=== PATIENT | male | born 1995 | race American Indian/Alaskan Native ===

== ENCOUNTER 2018-11-03 17:45 | Emergency (ER) | payer BC ==
--- NOTE | 2018-11-03 17:57 | Emergency Department Report ---
Chief Complaint: Back Pain/Injury Stated Complaint: CHEST PAIN/RT SIDE/BACK PAIN - HPI History of Present Illness: 23 yo w right sided cp occurred while asleep no sob rad to back 12 lead noted vss nad abc intact pmh none psh none rx none denies etoh, cig or drugs MSE completed MSE screening note: Focused history and physical exam performed. Due to findings the following was ordered: ED Disposition for MSE Condition: Stable
[2018-11-03 18:03] VITALS: BP 138/76
--- NOTE | 2018-11-03 18:46 | XRay Report ---
FINAL REPORT EXAM: XR CHEST ROUTINE 2V HISTORY: chest pain TECHNIQUE: upright single view chest PRIORS: None. FINDINGS: Cardiac and mediastinal contours are unremarkable. No focal pulmonary infiltrate is identified. No pleural fluid collection seen. Pulmonary vasculature is unremarkable. IMPRESSION: Negative single-view chest
[2018-11-03] MEDS ORDERED: ULTRAM PO ONE (19:47)
--- NOTE | 2018-11-03 20:03 | Emergency Department Report ---
ED General Adult HPI - General Chief complaint: Back Pain/Injury Stated complaint: CHEST PAIN/RT SIDE/BACK PAIN Time Seen by Provider: 11/03/18 18:00 Source: patient Mode of arrival: Ambulatory Limitations: No Limitations - History of Present Illness Initial comments: Patient is a 23-year-old -U[place]and[place] male with a history of bronchitis works as a data warehouse developer presents for right sided chest wall pain follow 10 pain is exacerbated by deep breathing and movement and overhead reaching pain started yesterday and radiates to right upper back there is no shortness of breath there is no dizziness or lightheadedness no nausea vomiting patient denies shortness of breath has been no wheezing or cough no URI symptoms there's no activity intolerance patient is tolerating by mouth intake this pain is reproducible to touch palpation and overhead reaching Onset/Timin -: days(s) Location: chest Radiation: back Severity scale (0 -10): 6 Quality: sharp Consistency: intermittent Improves with: rest Worsens with: movement, other (deep inspiration) Associated Symptoms: chest pain. denies: cough, diaphoresis, nausea/vomiting, shortness of breath, syncope, weakness Treatments Prior to Arrival: none - Related Data Previous Rx's Medication Instructions Recorded Last Taken Type Naproxen 500 mg PO BID PRN #30 tablet 11/03/18 Unknown Rx Allergies Allergy/AdvReac Type Severity Reaction Status Date / Time ketorolac [From Toradol] Allergy Rash Verified 11/03/18 17:49 Sulfa (Sulfonamide Allergy Rash Verified 11/03/18 17:49 Antibiotics) ED Review of Systems ROS: Stated complaint: CHEST PAIN/RT SIDE/BACK PAIN Other details as noted in HPI Constitutional: denies: chills, fever Eyes: denies: eye pain, eye discharge, vision change ENT: denies: ear pain, throat pain Respiratory: denies: cough, shortness of breath, wheezing Cardiovascular: chest pain Endocrine: no symptoms reported Gastrointestinal: denies: abdominal pain, nausea, vomiting, diarrhea Genitourinary: denies: urgency, dysuria Musculoskeletal: denies: joint swelling, arthralgia Skin: denies: rash, lesions Neurological: denies: headache, weakness, paresthesias Psychiatric: denies: anxiety, depression Hematological/Lymphatic: denies: easy bleeding, easy bruising ED Past Medical Hx - Past Medical History Previous Medical History?: No - Surgical History Past Surgical History?: Yes Additional Surgical History: Ortho surgery - Social History Smoking Status: Current Every Day Smoker Substance Use Type: None - Medications Home Medications: Home Medications Medication Instructions Recorded Confirmed Last Taken Type Naproxen 500 mg PO BID PRN #30 tablet 11/03/18 Unknown Rx ED Physical Exam - General Limitations: No Limitations General appearance: alert, in no apparent distress - Head Head exam: Present: atraumatic, normocephalic, normal inspection - Eye Eye exam: Present: normal appearance, PERRL, EOMI Pupils: Present: normal accommodation - ENT ENT exam: Present: normal orophraynx, mucous membranes moist, TM's normal bilaterally, normal external ear exam - Neck Neck exam: Present: normal inspection, full ROM. Absent: tenderness, lymphadenopathy, thyromegaly - Respiratory Respiratory exam: Present: chest wall tenderness (right lateral chest wall tenderness ). Absent: wheezes, stridor - Cardiovascular Cardiovascular Exam: Present: regular rate, normal rhythm, normal heart sounds. Absent: systolic murmur, diastolic murmur, rubs, gallop - GI/Abdominal GI/Abdominal exam: Present: soft, normal bowel sounds. Absent: tenderness, bruit, hernia - Rectal Rectal exam: Present: deferred - Extremities Exam Extremities exam: Present: normal inspection, full ROM, normal capillary refill. Absent: tenderness, pedal edema, joint swelling, calf tenderness - Back Exam Back exam: Present: normal inspection, full ROM. Absent: tenderness, CVA tenderness (R), CVA tenderness (L), muscle spasm, rash noted - Neurological Exam Neurological exam: Present: alert, oriented X3, CN II-XII intact, normal gait, reflexes normal - Psychiatric Psychiatric exam: Present: normal affect, normal mood - Skin Skin exam: Present: warm, dry, intact, normal color. Absent: rash ED Course Vital Signs 11/03/18 18:02 Temperature 98.2 F Pulse Rate 73 Respiratory 18 Rate Blood Pressure 138/76 O2 Sat by Pulse 100 Oximetry ED Medical Decision Making - EKG Data EKG shows normal: sinus rhythm Rate: normal - EKG Data When compared to previous EKG there are: previous EKG unavailable Interpretation: normal EKG (Ekg interp by ED attending : NSR no ectopy no ST Elevation ) - Radiology Data Radiology results: report reviewed, image reviewed FINAL REPORT EXAM: XR CHEST ROUTINE 2V HISTORY: chest pain TECHNIQUE: upright single view chest PRIORS: None. FINDINGS: Cardiac and mediastinal contours are unremarkable. No focal pulmonary infiltrate is identified. No pleural fluid collection seen. Pulmonary vasculature is unremarkable. IMPRESSION: Negative single-view chest Transcribed By: JUNI Dictated By: BAM RONDON MD Electronically Authenticated By: BAM RONDON MD Signed Date/Time: 11/03/181845 DD/ 44 TD/TT: 11/03/181844 - Medical Decision Making Ekg is normal interp by ed attending, cxr: normal cxr no infiltrates no opa cites, exam: right anterior lateral chest wall tenderness that is reproducible to palpation, there is no deformity no crepitus no ecchymosis, there has been no fall injury or trauma , pt denies sob there is no wheezing lungs sounds are clear throughout all lung lawson pt is in nad, plan: NSAIDS prn chest wall pain follow up with pcp in 2-3 days, return to ed if symptoms worsen. pt will dc'd to home in stable condition at this time, there is no concern for GA or PE, Heart score not completed as there was no trop result however likely 0 given hx and exam, Perc PE is 0, pt is stable at this time. pain is 1/10 after NSAIDS given in ED. Critical care attestation.: If time is entered above; I have spent that time in minutes in the direct care of this critically ill patient, excluding procedure time. ED Disposition Clinical Impression: Chest wall pain Disposition: DC-01 TO HOME OR SELFCARE Is pt being admited?: No Does the pt Need Aspirin: No Condition: Stable Instructions: Chest Pain (ED), Costochondritis (ED) Prescriptions: Naproxen 500 mg PO BID PRN #30 tablet PRN Reason: pain Referrals: [facility] [Outside] - 3-5 Days Forms: Work/School Release Form(ED) Time of Disposition: 20:16
== END 2018-11-03 20:24 | disposition home or self-care (01) ==
LOC: ED 17:45
DX: R07.89 Other chest pain (principal); F17.200 Nicotine dependence, unspecified, uncomplicated; Z88.2 Allergy status to sulfonamides; Z88.5 Allergy status to narcotic agent
CPT/HCPCS: 71046; 93005; 93010; 99283

== ENCOUNTER 2021-04-07 08:41 | Emergency (ER) | payer BC ==
[2021-04-07 09:23] VITALS: BP 119/64
[2021-04-07 10:07] LABS: Hematocrit 41.1 % (35.5-45.6); Hemoglobin 13.4 gm/dl (11.8-15.2); Mean Corpuscular HGB Conc 33 % (32-34); Mean Corpuscular Volume 74 fl (84-94); Platelet Count 199 K/mm3 (140-440); Red Blood Count 5.58 M/mm3 (3.65-5.03); Red Cell Distribution Width 15.3 % (13.2-15.2)
[2021-04-07 10:26] LABS: Alanine Aminotransferase 20 units/L (7-56); Albumin 4.7 g/dL (3.9-5); BUN/Creatinine Ratio 10; Blood Urea Nitrogen 10 mg/dL (9-20); Calcium 9.6 mg/dL (8.4-10.2); Hemolysis Index 6
--- NOTE | 2021-04-07 10:28 | Event Note ---
ED Screening Note ED Screening Note: +marijuana +tobacco +ETOH n/v began this morning 10 episodes no diarrhea lower abd pain and lower back pain no hematochezia, melena or hematemesis pmhx none allergy sulfa and toradol This initial assessment/diagnostic orders/clinical plan/treatment(s) is/are subject to change based on patients health status, clinical progression and re- assessment by fellow clinical providers in the ED. Further treatment and workup at subsequent clinical providers discretion. Patient/guardian urged not to elope from the ED as their condition may be serious if not clinically assessed and managed. Initial orders include: labs, urine
[2021-04-07] MEDS ORDERED: ONDANSETRON 4 MG/2 ML INJ IV ONE (10:48)
[2021-04-07] MEDS ORDERED: SODIUM CHLORIDE 0.9% 1000 ML 1,000 ML IV ONE (10:48)
[2021-04-07 10:52] LABS: Bilirubin,Urine NEG (Negative); Blood,Urine NEG (Negative); Color,Urine Yellow (Yellow); Mucus,Urine 2+ /HPF; WBC,Urine < 1.0 /HPF (0.0-6.0)
--- NOTE | 2021-04-07 12:00 | Cat Scan Report ---
CT ABDOMEN AND PELVIS WITH CONTRAST INDICATION / CLINICAL INFORMATION: lower abd pain, lower back pain, n/v OMNI 300 100 ml. TECHNIQUE: Axial CT images were obtained through the abdomen and pelvis after IV contrast. All CT sc ans at this location are performed using CT dose reduction for ALARA by means of automated exposure c ontrol. COMPARISON: None available. FINDINGS: LOWER CHEST: No significant abnormality. LIVER: No significant abnormality. GALLBLADDER: No significant abnormality. BILE DUCTS: No significant abnormality. PANCREAS: No significant abnormality. SPLEEN: No significant abnormality. ADRENALS: No significant abnormality. RIGHT KIDNEY / URETER: No significant abnormality. LEFT KIDNEY / URETER: No significant abnormality. STOMACH / SMALL BOWEL: No significant abnormality. COLON: No significant abnormality. APPENDIX: Nonvisualized. However, no pericecal inflammation is identified. PERITONEUM: No free fluid. No free air. No fluid collection. LYMPH NODES: No significant adenopathy. AORTA / ARTERIES: No significant abnormality. IVC / VEINS: No significant abnormality. URINARY BLADDER: No significant abnormality. REPRODUCTIVE ORGANS: No significant abnormality. ADDITIONAL FINDINGS: None. SKELETAL SYSTEM: No significant abnormality. IMPRESSION: 1. No significant abnormality. Signer Name: Waldo Tipton MD Signed: 04/07/2021 11:56 AM Workstation Name: [id number]
--- NOTE | 2021-04-07 12:16 | Emergency Department Report ---
ED N/V/D HPI - General Chief complaint: Abdominal Pain Stated complaint: ABD PAINS Time Seen by Provider: 04/07/21 10:25 Source: patient Mode of arrival: Ambulatory Limitations: No Limitations - History of Present Illness Initial comments: Patient is a 25-year-old male presents emergency room complaints of nausea vomiting that began this morning. He reports that he had approximately 10 episodes of vomiting. Patient states that he has lower abdominal and lower back discomfort. He denies any diarrhea, hematochezia, melena, hematemesis, pus in the stool, fever, chills. He denies any recent travel, sick contacts, eating spoiled or different foods, water from a different source, recent camping, recent antibiotics. No past medical history. Allergy to sulfa and Toradol. He endorses marijuana, tobacco, alcohol use. - Related Data Previous Rx's Medication Instructions Recorded Last Taken Type Naproxen 500 mg PO BID PRN #30 tablet 11/03/18 Unknown Rx Ondansetron [Zofran Odt] 4 mg PO Q8HR PRN #10 tab.rapdis 04/07/21 Unknown Rx Allergies Allergy/AdvReac Type Severity Reaction Status Date / Time ketorolac [From Toradol] Allergy Rash Verified 11/03/18 17:49 Sulfa (Sulfonamide Allergy Rash Verified 11/03/18 17:49 Antibiotics) ED Review of Systems ROS: Stated complaint: ABD PAINS Other details as noted in HPI Comment: All other systems reviewed and negative ED Past Medical Hx - Past Medical History Previous Medical History?: No - Surgical History Additional Surgical History: Ortho surgery, 2 wrist surgeries, knee surgery - Social History Smoking Status: Current Every Day Smoker Substance Use Type: None - Medications Home Medications: Home Medications Medication Instructions Recorded Confirmed Last Taken Type Naproxen 500 mg PO BID PRN #30 tablet 11/03/18 Unknown Rx Ondansetron [Zofran Odt] 4 mg PO Q8HR PRN #10 tab.rapdis 04/07/21 Unknown Rx ED Physical Exam - General Limitations: No Limitations General appearance: alert, in no apparent distress - Head Head exam: Present: atraumatic, normocephalic - Eye Eye exam: Present: normal appearance - ENT ENT exam: Present: mucous membranes moist - Respiratory Respiratory exam: Present: normal lung sounds bilaterally. Absent: respiratory distress, wheezes, rales, rhonchi, stridor, chest wall tenderness, accessory muscle use, decreased breath sounds, prolonged expiratory - Cardiovascular Cardiovascular Exam: Present: regular rate, normal rhythm, normal heart sounds. Absent: systolic murmur, diastolic murmur, rubs, gallop - GI/Abdominal GI/Abdominal exam: Present: soft, tenderness (mild generalized lower), normal bowel sounds. Absent: distended, guarding, rebound, rigid - Back Exam Back exam: Absent: CVA tenderness (R), CVA tenderness (L) - Neurological Exam Neurological exam: Present: alert, oriented X3 - Psychiatric Psychiatric exam: Present: normal affect, normal mood - Skin Skin exam: Present: warm, dry, intact ED Course Vital Signs 04/07/21 04/07/21 09:20 13:03 Temperature 98.8 F Pulse Rate 72 78 Respiratory 18 16 Rate Blood Pressure 119/64 O2 Sat by Pulse 100 98 Oximetry ED Medical Decision Making - Lab Data Result diagrams: 04/07/21 09:29 04/07/21 09:29 Lab Results 04/07/21 04/07/21 04/07/21 Range/Units 09:29 09:29 09:29 WBC 6.1 (4.5-11.0) K/mm3 RBC 5.58 H (3.65-5.03) M/mm3 Hgb 13.4 (11.8-15.2) gm/dl Hct 41.1 (35.5-45.6) % MCV 74 L (84-94) fl MCH 24 L (28-32) pg MCHC 33 (32-34) % RDW 15.3 H (13.2-15.2) % Plt Count 199 (140-440) K/mm3 [place] % (Auto) Machine Brush Maker Add Manual Diff Complete Total Counted 100 Lymphocytes % (Manual) 1.0 L (13.4-35.0) % Monocytes % (Manual) 6.0 (0.0-7.3) % Nucleated RBC % Not Reportable Seg Neutrophils # Man 5.7 (1.8-7.7) K/mm3 Band Neutrophils # 0.0 K/mm3 Lymphocytes # (Manual) 0.1 L (1.2-5.4) K/mm3 Abs React Lymphs (Man) 0.0 K/mm3 Monocytes # (Manual) 0.4 (0.0-0.8) K/mm3 Eosinophils # (Manual) 0.0 (0.0-0.4) K/mm3 Basophils # (Manual) 0.0 (0.0-0.1) K/mm3 Metamyelocytes # 0.0 K/mm3 Myelocytes # 0.0 K/mm3 Promyelocytes # 0.0 K/mm3 Blast Cells # 0.0 K/mm3 WBC Morphology Not Reportable Hypersegmented Neuts Not Reportable Hyposegmented Neuts Not Reportable Hypogranular Neuts Not Reportable Smudge Cells Not Reportable Toxic Granulation Not Reportable Toxic Vacuolation Not Reportable Dohle Bodies Not Reportable Pelger-Huet Anomaly Not Reportable Rachelle Rods Not Reportable Platelet Estimate Consistent w auto Clumped Platelets Not Reportable Plt Clumps, EDTA Not Reportable Large Platelets Not Reportable Giant Platelets Not Reportable Platelet Satelliting Not Reportable Plt Morphology Comment Not Reportable RBC Morphology Not Reportable Dimorphic RBCs Not Reportable Polychromasia Not Reportable Hypochromasia 1+ Poikilocytosis Not Reportable Anisocytosis Not Reportable Microcytosis Not Reportable Macrocytosis Not Reportable Spherocytes Not Reportable Pappenheimer Bodies Not Reportable Sickle Cells Not Reportable Target Cells Not Reportable Tear Drop Cells Not Reportable Ovalocytes Not Reportable Helmet Cells Not Reportable Harley-[place]-Cascade Bodies Not Reportable [place] Rings Not Reportable Greene Cells Not Reportable Bite Cells Not Reportable Crenated Cell Not Reportable Elliptocytes Not Reportable Acanthocytes (Spur) Not Reportable Rouleaux Not Reportable Hemoglobin C Crystals Not Reportable Schistocytes Not Reportable Malaria parasites Not Reportable Javon Bodies Not Reportable Hem Pathologist Commnt No Sodium 138 (137-145) mmol/L Potassium 4.4 (3.6-5.0) mmol/L Chloride 100.8 (98-107) mmol/L Carbon Dioxide 27 (22-30) mmol/L Anion Gap 15 mmol/L BUN 10 (9-20) mg/dL Creatinine 1.0 (0.8-1.3) mg/dL Estimated GFR > 60 ml/min BUN/Creatinine Ratio 10 % Glucose 88 (75-100) mg/dL Calcium 9.6 (8.4-10.2) mg/dL Total Bilirubin 0.60 (0.1-1.2) mg/dL AST 18 (5-40) units/L ALT 20 (7-56) units/L Alkaline Phosphatase 77 (35-129) units/L Total Protein 7.7 (6.3-8.2) g/dL Albumin 4.7 (3.9-5) g/dL Albumin/Globulin Ratio 1.6 % Lipase 32 (13-60) units/L Urine Color (Yellow) Urine Turbidity (Clear) Urine pH (5.0-7.0) Ur Specific [place] (1.003-1.030) Urine Protein (Negative) mg/dL Urine Glucose (UA) (Negative) mg/dL Urine Ketones (Negative) mg/dL Urine Blood (Negative) Urine Nitrite (Negative) Urine Bilirubin (Negative) Urine Urobilinogen (<2.0) mg/dL Ur Leukocyte Esterase (Negative) Urine WBC (Auto) (0.0-6.0) /HPF Urine RBC (Auto) (0.0-6.0) /HPF Urine Mucus /HPF // Range/Units 10:13 WBC (4.5-11.0) K/mm3 RBC (3.65-5.03) M/mm3 Hgb (11.8-15.2) gm/dl Hct (35.5-45.6) % MCV (84-94) fl MCH (28-32) pg MCHC (32-34) % RDW (13.2-15.2) % Plt Count (140-440) K/mm3 Alger % (Auto) Add Manual Diff Total Counted Lymphocytes % (Manual) (13.4-35.0) % Monocytes % (Manual) (0.0-7.3) % Nucleated RBC % Seg Neutrophils # Man (1.8-7.7) K/mm3 Band Neutrophils # K/mm3 Lymphocytes # (Manual) (1.2-5.4) K/mm3 Abs React Lymphs (Man) K/mm3 Monocytes # (Manual) (0.0-0.8) K/mm3 Eosinophils # (Manual) (0.0-0.4) K/mm3 Basophils # (Manual) (0.0-0.1) K/mm3 Metamyelocytes # K/mm3 Myelocytes # K/mm3 Promyelocytes # K/mm3 Blast Cells # K/mm3 WBC Morphology Hypersegmented Neuts Hyposegmented Neuts Hypogranular Neuts Smudge Cells Toxic Granulation Toxic Vacuolation Dohle Bodies Pelger-Huet Anomaly Rachelle Rods Platelet Estimate Clumped Platelets Plt Clumps, EDTA Large Platelets Giant Platelets Platelet Satelliting Plt Morphology Comment RBC Morphology Dimorphic RBCs Polychromasia Hypochromasia Poikilocytosis Anisocytosis Microcytosis Macrocytosis Spherocytes Pappenheimer Bodies Sickle Cells Target Cells Tear Drop Cells Ovalocytes Helmet Cells Harley-Highfield-Cascade Bodies [place] Rings Greene Cells Bite Cells Crenated Cell Elliptocytes Acanthocytes (Spur) Rouleaux Hemoglobin C Crystals Schistocytes Malaria parasites Javon Bodies Hem Pathologist Commnt Sodium (137-145) mmol/L Potassium (3.6-5.0) mmol/L Chloride (98-107) mmol/L Carbon Dioxide (22-30) mmol/L Anion Gap mmol/L BUN (9-20) mg/dL Creatinine (0.8-1.3) mg/dL Estimated GFR ml/min BUN/Creatinine Ratio % Glucose (75-100) mg/dL Calcium (8.4-10.2) mg/dL Total Bilirubin (0.1-1.2) mg/dL AST (5-40) units/L ALT (7-56) units/L Alkaline Phosphatase (35-129) units/L Total Protein (6.3-8.2) g/dL Albumin (3.9-5) g/dL Albumin/Globulin Ratio % Lipase (13-60) units/L Urine Color Yellow (Yellow) Urine Turbidity Clear (Clear) Urine pH 8.0 H (5.0-7.0) Ur Specific [place] 1.027 (1.003-1.030) Urine Protein 100 mg/dl (Negative) mg/dL Urine Glucose (UA) Neg (Negative) mg/dL Urine Ketones Neg (Negative) mg/dL Urine Blood Neg (Negative) Urine Nitrite Neg (Negative) Urine Bilirubin Neg (Negative) Urine Urobilinogen 2.0 (<2.0) mg/dL Ur Leukocyte Esterase Neg (Negative) Urine WBC (Auto) < 1.0 (0.0-6.0) /HPF Urine RBC (Auto) 3.0 (0.0-6.0) /HPF Urine Mucus 2+ /HPF - Radiology Data Radiology results: report reviewed Ordering Physician: MEGAN BRADY Date of Service: 04/07/21 Procedure(s): CT abdomen pelvis w con Accession Number(s): [id number] cc: MEGAN BRADY CT ABDOMEN AND PELVIS WITH CONTRAST INDICATION / CLINICAL INFORMATION: lower abd pain, lower back pain, n/v OMNI 300 100 ml. TECHNIQUE: Axial CT images were obtained through the abdomen and pelvis after IV contrast. All CT scans at this location are performed using CT dose reduction for ALARA by means of automated exposure control. COMPARISON: None available. FINDINGS: LOWER CHEST: No significant abnormality. LIVER: No significant abnormality. GALLBLADDER: No significant abnormality. BILE DUCTS: No significant abnormality. PANCREAS: No significant abnormality. SPLEEN: No significant abnormality. ADRENALS: No significant abnormality. RIGHT KIDNEY / URETER: No significant abnormality. LEFT KIDNEY / URETER: No significant abnormality. STOMACH / SMALL BOWEL: No significant abnormality. COLON: No significant abnormality. APPENDIX: Nonvisualized. However, no pericecal inflammation is identified. PERITONEUM: No free fluid. No free air. No fluid collection. LYMPH NODES: No significant adenopathy. AORTA / ARTERIES: No significant abnormality. IVC / VEINS: No significant abnormality. URINARY BLADDER: No significant abnormality. REPRODUCTIVE ORGANS: No significant abnormality. ADDITIONAL FINDINGS: None. SKELETAL SYSTEM: No significant abnormality. IMPRESSION: 1. No significant abnormality. Signer Name: Waldo Tipton MD Signed: 04/07/2021 11:56 AM Workstation Name: [id number] Transcribed By: SB Dictated By: WALDO TIPTON MD Electronically Authenticated By: WALDO TIPTON MD Signed Date/Time: 04/07/21 1156 DD/ 1152 TD/TT: - Medical Decision Making Patient is a 25-year-old male presents emergency room complaints of nausea vomiting that began this morning. He reports that he had approximately 10 episodes of vomiting. Patient states that he has lower abdominal and lower back discomfort. He denies any diarrhea, hematochezia, melena, hematemesis, pus in the stool, fever, chills. He denies any recent travel, sick contacts, eating spoiled or different foods, water from a different source, recent camping, recent antibiotics. No past medical history. Allergy to sulfa and Toradol. He endorses marijuana, tobacco, alcohol use. Vitals are normal. On exam patient has mild generalized lower abdominal tenderness palpation, no guarding, no kassidy ound, no rigidity, no masses, no peritoneal signs, no CVA tenderness. Labs are stable. UA without evidence of UTI. CT abdomen pelvis with IV contrast 1. No significant abnormality. Patient given 1 L normal saline and Zofran while in the emergency department with improvement of his symptoms. Patient was feeling better and ready to go home. He had no further episodes of vomiting while in the emergency department was able to tolerate p.o. intake. Patient given prescription for Zofran. Discussed the importance of primary care follow-up for repeat abdominal examination in 2 days. Discussed return precautions with patient. Advised patient Please take medication as prescribed as needed. Increase your water intake. Eat a bland liquid diet and still advance her diet as tolerated. Follow-up with your primary care doctor for reexamination the next 2 days. Return to emergency room immediately for any new or worsening symptoms including but not limited to worsening abdominal pain, fever, continued vomiting, unable to tolerate by mouth intake, etc. Critical care attestation.: If time is entered above; I have spent that time in minutes in the direct care of this critically ill patient, excluding procedure time. ED Disposition Clinical Impression: Abdominal pain Qualifiers: Abdominal location: lower abdomen, unspecified Qualified Code(s): R10.30 - Lower abdominal pain, unspecified Low back pain Qualifiers: Chronicity: acute Back pain laterality: unspecified Sciatica presence: without sciatica Qualified Code(s): M54.5 - Low back pain Nausea & vomiting Qualifiers: Vomiting type: unspecified Vomiting Intractability: non-intractable Qualified Code(s): R11.2 - Nausea with vomiting, unspecified Disposition: DC-01 TO HOME OR SELFCARE Is pt being admited?: No Does the pt Need Aspirin: No Condition: Stable Instructions: Abdominal Pain, Adult, Nausea and Vomiting, Adult, [id number] Additional Instructions: Please take medication as prescribed as needed. Increase your water intake. Eat a bland liquid diet and still advance her diet as tolerated. Follow-up with your primary care doctor for reexamination the next 2 days. Return to emergency room immediately for any new or worsening symptoms including but not limited to worsening abdominal pain, fever, continued vomiting, unable to tolerate by mouth intake, etc. Prescriptions: Ondansetron [Zofran Odt] 4 mg PO Q8HR PRN #10 tab.rapdis PRN Reason: nausea/vomiting Referrals: PRIMARY CAREMD [Primary Care Provider] - 2-3 Days MELANIE TO MD [Staff Physician] - 2-3 Days [facility] [Provider Group] - 2-3 Days Forms: Work/School Release Form(ED) Time of Disposition: 12:15 Print Language: SETSWANA
[2021-04-07 15:16] LABS: Total Cells Counted 100
[2021-04-07 15:17] LABS: Hypochromasia 1+; Platelet Estimate Consistent w Auto
== END 2021-04-07 13:03 | disposition home or self-care (01) ==
LOC: ED 08:41
DX: M54.5 Low back pain (principal); R10.30 Lower abdominal pain, unspecified; R11.2 Nausea with vomiting, unspecified; F17.200 Nicotine dependence, unspecified, uncomplicated; Z79.899 Other long term (current) drug therapy; Z98.890 Other specified postprocedural states; Z88.2 Allergy status to sulfonamides; Z88.8 Allergy status to other drugs, medicaments and biological substances
CPT/HCPCS: 36415; 74177; 80053; 81001; 83690; 85007; 85025; 96361; 96374; 99284; J2405; J7030; Q9967

== ENCOUNTER 2022-03-30 15:42 | Emergency (ER) | payer BC ==
[2022-03-30] MEDS ORDERED: oxyCODONE /ACETAMINOPHEN 5-325MG TAB PO ONE (21:08)
--- NOTE | 2022-03-30 21:10 | Emergency Department Report ---
ED ENT HPI - General Chief complaint: Skin/Abscess/Foreign Body Stated complaint: LEFT SIDE OF MOUTH ABCESS Time Seen by Provider: 03/30/22 20:57 Source: patient Mode of arrival: Ambulatory Limitations: No Limitations - History of Present Illness MD complaint: tooth pain -: Gradual, days(s) (34) Location: tooth # 1 - tender and swelling to this region Severity: moderate Quality: aching, dull Consistency: constant Improves with: none Worsens with: swallowing, position Associated Symptoms: toothache. denies: pain with swallowing, sore throat - Related Data Previous Rx's Medication Instructions Recorded Last Taken Type Naproxen 500 mg PO BID PRN #30 tablet 11/03/18 Unknown Rx Ondansetron [Zofran Odt] 4 mg PO Q8HR PRN #10 tab.rapdis 04/07/21 Unknown Rx Amoxicillin [Amoxicillin TAB] 875 mg PO BID #20 tablet 03/30/22 Unknown Rx Chlorhexidine Mouthwash [Peridex] 15 ml MM BID #473 bottle 03/30/22 Unknown Rx Lidocaine Viscous 2% 5 ml MM Q3H PRN #120 udc 03/30/22 Unknown Rx traMADoL [Ultram] 50 mg PO Q6HR PRN #20 tablet 03/30/22 Unknown Rx Allergies Allergy/AdvReac Type Severity Reaction Status Date / Time ketorolac [From Toradol] Allergy Rash Verified 03/30/22 16:49 Sulfa (Sulfonamide Allergy Rash Verified 03/30/22 16:49 Antibiotics) ED Dental HPI - General Chief complaint: Skin/Abscess/Foreign Body Stated complaint: LEFT SIDE OF MOUTH ABCESS Time Seen by Provider: 03/30/22 20:57 Source: patient Mode of arrival: Ambulatory Limitations: No Limitations - Related Data Previous Rx's Medication Instructions Recorded Last Taken Type Naproxen 500 mg PO BID PRN #30 tablet 11/03/18 Unknown Rx Ondansetron [Zofran Odt] 4 mg PO Q8HR PRN #10 tab.rapdis 04/07/21 Unknown Rx Amoxicillin [Amoxicillin TAB] 875 mg PO BID #20 tablet 03/30/22 Unknown Rx Chlorhexidine Mouthwash [Peridex] 15 ml MM BID #473 bottle 03/30/22 Unknown Rx Lidocaine Viscous 2% 5 ml MM Q3H PRN #120 udc 03/30/22 Unknown Rx traMADoL [Ultram] 50 mg PO Q6HR PRN #20 tablet 03/30/22 Unknown Rx Allergies Allergy/AdvReac Type Severity Reaction Status Date / Time ketorolac [From Toradol] Allergy Rash Verified 03/30/22 16:49 Sulfa (Sulfonamide Allergy Rash Verified 03/30/22 16:49 Antibiotics) ED Review of Systems ROS: Stated complaint: LEFT SIDE OF MOUTH ABCESS Other details as noted in HPI Comment: All other systems reviewed and negative ED Past Medical Hx - Surgical History Additional Surgical History: Ortho surgery, 2 wrist surgeries, knee surgery - Social History Smoking Status: Never Smoker - Medications Home Medications: Home Medications Medication Instructions Recorded Confirmed Last Taken Type Naproxen 500 mg PO BID PRN #30 tablet 11/03/18 Unknown Rx Ondansetron [Zofran Odt] 4 mg PO Q8HR PRN #10 tab.rapdis 04/07/21 Unknown Rx Amoxicillin [Amoxicillin TAB] 875 mg PO BID #20 tablet 03/30/22 Unknown Rx Chlorhexidine Mouthwash [Peridex] 15 ml MM BID #473 bottle 03/30/22 Unknown Rx Lidocaine Viscous 2% 5 ml MM Q3H PRN #120 udc 03/30/22 Unknown Rx traMADoL [Ultram] 50 mg PO Q6HR PRN #20 tablet 03/30/22 Unknown Rx ED Physical Exam - General Limitations: No Limitations General appearance: alert, in no apparent distress - Head Head exam: Present: atraumatic, normocephalic - Eye Eye exam: Present: normal appearance, PERRL, EOMI Pupils: Present: normal accommodation - ENT ENT exam: Present: normal exam, normal orophraynx, mucous membranes moist, TM's normal bilaterally, other (Diffuse dental caries with some swelling to the right lower mandible region and adjacent gingiva. Airway patent tongue uvula midline no drooling. Normal voice.) - Neck Neck exam: Present: normal inspection - Respiratory Respiratory exam: Present: normal lung sounds bilaterally. Absent: respiratory distress - Cardiovascular Cardiovascular Exam: Present: regular rate, normal rhythm. Absent: systolic murmur, diastolic murmur, rubs, gallop - GI/Abdominal GI/Abdominal exam: Present: soft, normal bowel sounds - Rectal Rectal exam: Present: deferred - Extremities Exam Extremities exam: Present: normal inspection - Back Exam Back exam: Present: normal inspection - Neurological Exam Neurological exam: Present: alert, oriented X3 - Psychiatric Psychiatric exam: Present: normal affect, normal mood - Skin Skin exam: Present: warm, dry, intact, normal color. Absent: rash ED Course Vital Signs 03/30/22 03/30/22 15:55 21:38 Temperature 98.9 F Pulse Rate 100 H Respiratory 18 18 Rate Blood Pressure 139/76 O2 Sat by Pulse 99 Oximetry Critical care attestation.: If time is entered above; I have spent that time in minutes in the direct care of this critically ill patient, excluding procedure time. ED Disposition Clinical Impression: Infected dental caries, Dental abscess Disposition: 01 HOME / SELF CARE / HOMELESS Is pt being admited?: No Does the pt Need Aspirin: No Condition: Stable Instructions: Dental Abscess Prescriptions: Amoxicillin [Amoxicillin TAB] 875 mg PO BID #20 tablet Lidocaine Viscous 2% 5 ml MM Q3H PRN #120 udc PRN Reason: Pain, Moderate (4-6) Chlorhexidine Mouthwash [Peridex] 15 ml MM BID #473 bottle traMADoL [Ultram] 50 mg PO Q6HR PRN #20 tablet PRN Reason: Pain Referrals: [facility] [Outside] - 3-5 Days
[2022-03-30 23:17] VITALS: BP 127/84
== END 2022-03-30 23:43 | disposition home or self-care (01) ==
LOC: ED 15:42
DX: K02.9 Dental caries, unspecified (principal); K04.7 Periapical abscess without sinus
CPT/HCPCS: 99282

== ENCOUNTER 2022-04-16 17:11 | Emergency (ER) | payer SELFPAY ==
[2022-04-16] MEDS ORDERED: ONDANSETRON 4 MG ODT TAB PO ONE (23:02)
[2022-04-16] MEDS ORDERED: oxyCODONE /ACETAMINOPHEN 5-325MG TAB PO ONE (23:02)
--- NOTE | 2022-04-16 23:40 | XRay Report ---
RIGHT KNEE 3 VIEW(S) INDICATION / CLINICAL INFORMATION: RIGHT KNEE INJURY - PAIN COMPARISON: None available. FINDINGS: There is no acute fracture or malalignment of the right knee. No significant arthritis. No joint effu leander. Signer Name: Savage Hernandez MD Signed: 04/16/2022 11:36 PM Workstation Name: [id number]
--- NOTE | 2022-04-17 00:31 | Emergency Department Report ---
ED Lower Extremity HPI - General Chief Complaint: Extremity Injury, Upper Stated Complaint: RT LEG PAIN Source: patient Mode of arrival: Ambulatory Limitations: No Limitations - History of Present Illness Initial Comments: Patient is a 26-year-old -Prydeinig male with no past medical history who presents to the ED with complaint of acute onset persistent right knee pain a fter twisting his right knee 24 hours ago. Patient states that the pain is especially worse with ambulation or any active range of motion and weightbearing of the right leg. Patient denies dizziness, syncope, chest pain, shortness of breath, fall, low back pain, abdominal pain, head or neck injuries, heavy lifting or numbness and tingling or weakness of lower extremities bilaterally. MD Complaint: knee injury (right knee pain) -: hour(s) (24) Injury: Knee: Right (pain, mild swelling) Type of Injury: hyperflexion, other (twisted right knee during ambulation) Place: street/outdoors Severity: severe Severity scale (0 -10): 8 Improves With: nothing Worsens With: weight bearing, movement, palpation Context: walking (twisted right knee) Associated Symptoms: swelling, able to partially bear weight. denies: numbness, tingling, unable to bear weight, ambulatory - Related Data Previous Rx's Medication Instructions Recorded Last Taken Type Naproxen 500 mg PO BID PRN #30 tablet 11/03/18 Unknown Rx Ondansetron [Zofran Odt] 4 mg PO Q8HR PRN #10 tab.rapdis 04/07/21 Unknown Rx Amoxicillin [Amoxicillin TAB] 875 mg PO BID #20 tablet 03/30/22 Unknown Rx Chlorhexidine Mouthwash [Peridex] 15 ml MM BID #473 bottle 03/30/22 Unknown Rx Lidocaine Viscous 2% 5 ml MM Q3H PRN #120 udc 03/30/22 Unknown Rx Naproxen 500 mg PO Q12H PRN #30 tab 04/17/22 Unknown Rx tiZANidine [Zanaflex 4mg TAB] 4 mg PO Q8H PRN #21 tab 04/17/22 Unknown Rx traMADoL [Ultram 50 MG tab] 50 mg PO Q6HR PRN #12 tablet 04/17/22 Unknown Rx Allergies Allergy/AdvReac Type Severity Reaction Status Date / Time ketorolac [From Toradol] Allergy Rash Verified 03/30/22 16:49 Sulfa (Sulfonamide Allergy Rash Verified 03/30/22 16:49 Antibiotics) ED Review of Systems ROS: Stated complaint: RT LEG PAIN Other details as noted in HPI Constitutional: denies: chills, fever Eyes: denies: eye pain, eye discharge, vision change ENT: denies: ear pain, throat pain Respiratory: denies: cough, shortness of breath, wheezing Cardiovascular: denies: chest pain, palpitations Endocrine: no symptoms reported Gastrointestinal: denies: abdominal pain, nausea, diarrhea Genitourinary: denies: urgency, dysuria Musculoskeletal: joint swelling (Right knee pain and swelling), arthralgia (Right knee pain and swelling). denies: back pain Skin: denies: rash, lesions Neurological: denies: headache, weakness, paresthesias Psychiatric: denies: anxiety, depression Hematological/Lymphatic: denies: easy bleeding, easy bruising ED Past Medical Hx - Past Medical History Previous Medical History?: No - Surgical History Past Surgical History?: No Additional Surgical History: Ortho surgery, 2 wrist surgeries, knee surgery - Social History Smoking Status: Never Smoker - Medications Home Medications: Home Medications Medication Instructions Recorded Confirmed Last Taken Type Naproxen 500 mg PO BID PRN #30 tablet 11/03/18 Unknown Rx Ondansetron [Zofran Odt] 4 mg PO Q8HR PRN #10 tab.rapdis 04/07/21 Unknown Rx Amoxicillin [Amoxicillin TAB] 875 mg PO BID #20 tablet 03/30/22 Unknown Rx Chlorhexidine Mouthwash [Peridex] 15 ml MM BID #473 bottle 03/30/22 Unknown Rx Lidocaine Viscous 2% 5 ml MM Q3H PRN #120 udc 03/30/22 Unknown Rx Naproxen 500 mg PO Q12H PRN #30 tab 04/17/22 Unknown Rx tiZANidine [Zanaflex 4mg TAB] 4 mg PO Q8H PRN #21 tab 04/17/22 Unknown Rx traMADoL [Ultram 50 MG tab] 50 mg PO Q6HR PRN #12 tablet 04/17/22 Unknown Rx ED Physical Exam - General Limitations: No Limitations General appearance: alert, in no apparent distress - Head Head exam: Present: atraumatic, normocephalic, normal inspection - Eye Eye exam: Present: normal appearance, PERRL, EOMI Pupils: Present: normal accommodation - ENT ENT exam: Present: normal exam, normal orophraynx, mucous membranes moist, TM's normal bilaterally, normal external ear exam - Neck Neck exam: Present: normal inspection, full ROM. Absent: tenderness - Respiratory Respiratory exam: Present: normal lung sounds bilaterally. Absent: respiratory distress, wheezes, rales, rhonchi, chest wall tenderness, accessory muscle use, decreased breath sounds, prolonged expiratory - Cardiovascular Cardiovascular Exam: Present: regular rate, normal rhythm, normal heart sounds. Absent: systolic murmur, diastolic murmur, rubs, gallop - GI/Abdominal GI/Abdominal exam: Present: soft, normal bowel sounds. Absent: tenderness, guarding, rebound, hyperactive bowel sounds, hypoactive bowel sounds, organomegaly, bruit - Extremities Exam Extremities exam: Present: normal inspection, full ROM (Limited range of motion of right knee due to pain), tenderness (Palpable right knee tenderness and mild swelling with limited range of motion due to pain), normal capillary refill, joint swelling (Mild swelling of right knee). Absent: pedal edema, calf tenderness - Back Exam Back exam: Present: normal inspection, full ROM. Absent: tenderness, CVA tenderness (R), CVA tenderness (L), muscle spasm, paraspinal tenderness, vertebral tenderness - Neurological Exam Neurological exam: Present: alert, oriented X3, CN II-XII intact, normal gait, reflexes normal - Psychiatric Psychiatric exam: Present: normal affect, normal mood - Skin Skin exam: Present: warm, dry, intact, normal color. Absent: rash ED Course Vital Signs 04/16/22 04/16/22 17:56 23:38 Temperature 98.3 F Pulse Rate 70 Respiratory 18 16 Rate Blood Pressure 136/75 [Left] O2 Sat by Pulse 99 Oximetry ED Lower Extremity MDM - Radiology Data Radiology results: report reviewed, image reviewed [facility] [address] [place] [address] XRay Report Signed Patient: AUSTEN HINTON II MR#: [id number] : 1995 Acct:[id number] Age/Sex: 26 / M ADM Date: 04/16/22 Loc: ED Attending Dr: Ordering Physician: MEGAN PINTO Date of Service: 04/16/22 Procedure(s): XR knee 3V RT Accession Number(s): [id number] cc: MEGAN PINTO Fluoro Time In Minutes: RIGHT KNEE 3 VIEW(S) INDICATION / CLINICAL INFORMATION: RIGHT KNEE INJURY - PAIN COMPARISON: None available. FINDINGS: There is no acute fracture or malalignment of the right knee. No significant arthritis. No joint effusion. Signer Name: Bam Hernandez MD Signed: 04/16/2022 11:36 PM Workstation Name: [id number] Transcribed By: MOO Dictated By: BAM HERNANDEZ MD Electronically Authenticated By: BAM HERNANDEZ MD Signed Date/Time: 04/16/222335 DD/ 34 TD/TT: - Medical Decision Making This is a 26-year-old -Prydeinig male with no past medical history who presents to the ED with complaint of acute onset persistent right knee pain after twisting his right knee 24 hours ago. Patient states that the pain is especially worse with ambulation or any active range of motion and weightbearing of the right leg. In the ED, patient is alert and oriented x3 and is not in any distress. Patient was treated for pain in the ED. Right knee x-ray showed no acute fractures or subluxations. Based on the history and physical exam findings, patient symptoms are likely musculoskeletal following the twisting injury 24 hours ago. Patient right knee was splinted with knee immobilizer and patient given crutches formulation. Patient was advised to follow-up with his primary care physician in 7 to 10 days for reevaluation or return to the ED immediately if symptoms get worse. - Differential Diagnosis Knee fracture; knee tendinitis; knee muscle strain; knee bursitis Critical care attestation.: If time is entered above; I have spent that time in minutes in the direct care of this critically ill patient, excluding procedure time. ED Disposition Clinical Impression: Sprain of right knee Qualifiers: Encounter type: initial encounter Involved ligament of knee: unspecified ligament Qualified Code(s): S83.91XA - Sprain of unspecified site of right knee, initial encounter Muscle strain of right knee Qualifiers: Encounter type: initial encounter Qualified Code(s): S86.911A - Strain of unspecified muscle(s) and tendon(s) at lower leg level, right leg, initial encounter Disposition: HOME / SELF CARE / HOMELESS Is pt being admited?: No Does the pt Need Aspirin: No Condition: Stable Instructions: Muscle Strain, [id number], Knee Sprain, Adult, [id number] Additional Instructions: Right knee x-ray showed no acute fractures or subluxations. Therefore your injuries are likely musculoskeletal following the twisting injury. Therefore take medications with food, drink plenty of fluids, follow-up with your primary care physician in 7 to 10 days for reevaluation or return to the ED immediately if symptoms get worse. Prescriptions: Naproxen 500 mg PO Q12H PRN #30 tab PRN Reason: Pain , Severe (7-10) traMADoL [Ultram 50 MG tab] 50 mg PO Q6HR PRN #12 tablet PRN Reason: Pain tiZANidine [Zanaflex 4mg TAB] 4 mg PO Q8H PRN #21 tab PRN Reason: Muscle Spasm Referrals: MELANIE TO MD [Primary Care Provider] - 7-10 days Forms: Work/School Release Form(ED) Time of Disposition: 00:32 Print Language: BERMUDIAN
[2022-04-17 01:06] VITALS: BP 135/81
== END 2022-04-17 01:06 | disposition home or self-care (01) ==
LOC: ED 17:11
DX: S83.91XA Sprain of unspecified site of right knee, initial encounter (principal); S86.911A Strain of unspecified muscle(s) and tendon(s) at lower leg level, right leg, initial encounter; Z88.2 Allergy status to sulfonamides; Z88.6 Allergy status to analgesic agent; X58.XXXA Exposure to other specified factors, initial encounter; Y93.89 Activity, other specified; Y92.89 Other specified places as the place of occurrence of the external cause; Y99.8 Other external cause status
CPT/HCPCS: 99283; J3490; Q0162